=== PATIENT | female | born 1980 | race American Indian/Alaskan Native ===

== ENCOUNTER 2018-06-15 13:54 | Day surgery (SDC) | payer MEDICAID ==
[2018-06-15 14:12] LABS: BASO # 0.01 K/mm3 (0.0-2.0); BASO % 0.2 % (0.0-3.0); EOS # 0.1 (0.0-0.7); GRAN # 2.21 (1.4-6.5); GRAN % 45.6 % (50.0-68.0); HEMOGLOBIN 10.1 g/dL (12.0-16.0); LYMPH # 2.3 (1.2-3.4); LYMPH % 46.4 % (22.0-35.0); MEAN CORPUSCULAR HEMOGLOBIN 22.2 pg (25.0-35.0); MEAN CORPUSCULAR HGB CONC 30.1 g/dl (31.0-37.0); MEAN PLATELET VOLUME 10.7 fl (7.0-11.0); MONO # 0.3 (0.1-0.6); MONO % 6.8 % (1.0-6.0); RBC 4.54 10^6/uL (3.5-6.1); RED CELL DISTRIBUTION WIDTH 15.6 % (11.5-14.5); WHITE BLOOD COUNT 4.9 10^3/uL (4.5-11.0)
[2018-06-15 14:22] LABS: BLOOD UREA NITROGEN 13 mg/dL (7-21); CALCIUM 9.7 mg/dL (8.4-10.5); GFR NON-AFRICAN AMERICAN > 60
[2018-06-15 14:31] LABS: INR 1.13; PARTIAL THROMBOPLASTIN TIME 25.5 Seconds (25.1-36.5); PROTHROMBIN TIME 12.9 SECONDS (9.4-12.5)
[2018-06-15 14:45] VITALS: O2SAT 98
[2018-06-15 16:39] VITALS: BMI 24.7
[2018-06-15 17:09] LABS: BODY FLUID TYPE PERITONEAL/ASCITES
[2018-06-15 17:10] VITALS: BP 143/85; PULSE 72; RESP 18; TEMP 98.4
--- NOTE | 2018-06-15 18:49 | US ---
PROCEDURE: Ultrasound guided paracentesis. HISTORY: Recurrent ascites. Abdominal pain and distension. PHYSICIAN(S): Harley Su MD. TECHNIQUE: The relative risks and indications for the procedure were explained to the patient and informed written consent obtained. Sonography of the abdomen was performed in a supine position. This revealed a small to moderate amount of non-loculated ascites, greatest in the right lower quadrant. A puncture site was selected and the area was prepped and draped in the usual sterile fashion. 1% Xylocaine was used to anesthetize the skin and soft tissues. A 7 [place] paracentesis catheter was trocared into the right lower quadrantand 2100 cc of bilious fluid aspirated. The appropriate labs were sent. IMPRESSION: Ultrasound-guided paracentesis in the right lower quadrant. 2100 cc of bilious fluid were aspirated. The appropriate labs were sent. Given the appearance of the fluid, the patient may benefit from further evaluation of the biliary system in abdomen and pelvis along with the uterus and ovaries.
[2018-06-15 19:51] LABS: BF GROSS APPEARANCE TURBID (CLEAR); BODY FLUID TOTAL COUNT 100 (0-0)
== END 2018-06-15 17:20 | disposition home or self-care (01) ==
LOC: OPSURG 13:54
PROVIDERS: ATTEND Radiology Vascular & Interventional Radiology
DX: R18.8 Other ascites (principal); R10.9 Unspecified abdominal pain; R14.0 Abdominal distension (gaseous)